=== PATIENT | male | born 1960 | race Caucasian/White ===

== ENCOUNTER 2017-02-27 02:07 | Inpatient (IN) | payer OTHER ==
[~2017-02-27] VITALS: Ht 177.8 cm; Wt 112.0 kg
[~2017-02-27 02:07] MED LIST: EDARBI40 M1 PO
--- NOTE | 2017-02-27 08:10 | Admission Core Measures ---
Acute Coronary Syndrome (CM) ACS Core Measures Acute Coronary Syndrome Diagnosis No Congestive Heart Failure (NEW) CHF Core Measures Congestive Heart Failure Diagnosis No Cerebrovascular Accident (NEW) CVA Core Measures CVA/TIA Diagnosis No Venous Thromboembolism VTE Core [place] (View Protocol) VTE Risk Factors Surgery No Mechanical VTE Prophylaxis d/t N/A MechProphylax Ordered No VTE Pharm Prophylaxis d/t NA PharmProphylax ordered Problem List As ranked by this Provider includes Assessment & Plan 1. Primary osteoarthritis of right hip HOME MEDS Home Med List Azilsartan Medoxomil (Edarbi) 40 MG TABLET 1 TAB PO DAILY BP (Reported)
--- NOTE | 2017-02-27 08:13 | Surg Short-stay <48hrs Dis Sum ---
Visit Information Visit Dates Admission Date: 02/27/17 Discharge Date: 02/28/17 Surgical Short Stay DC Summary Admission Diagnosis: Primary osteoarthritis right hip Final Diagnosis: Same, status post right total hip arthroplasty Procedure(s): Right total hip arthroplasty Summary/Significant Findings: Patient was admitted to the hospital for an elective total joint replacement. Procedure was tolerated well and patient was transferred to a general surgical floor. Diet was advanced and tolerated. Physical therapy performed evaluation and treatment. At time of hospital discharge, vital signs were stable, neurovascular status was intact, and pain was controlled with the use of oral pain medications. Condition at Discharge: Stable Discharge Disposition: home health services Discharge instructions provided to patient/family: Yes Post discharge follow-up plan: Follow up with Dr. Morgan in 6 weeks from date of surgery. Please call his office to schedule/confirm this appointment.
--- NOTE | 2017-02-27 09:27 | Patient Discharge Instructions ---
Discharge Instructions General Discharge Information You were seen/treated for: Right hip primary osteoarthritis You had these procedures: Right total hip arthroplasty Watch for these problems: Increasing pain despite the use of pain medication Increasing redness, warmth or swelling Drainage of any type from incision Inability to bear weight on operative leg Persistent nausea and vomiting Fever greater than 101.5 degrees Other wound care: Please keep wound clean and dry. No ointments or lotions of any type on or near incision. Your dressing will be changed by your nurse on the second day after your surgery. Daily dry dressing changes are recommended each day thereafter. You may shower 48hr after surgery. Do not soak your wound- no tub baths or swimming. Special Instructions: Aspirin: You are taking this medication to help prevent blood clot formation. Please take with food to protect your stomach lining. Take as directed. Protonix (pantoprazole): Take this medication to protect your stomach lining while taking high dose aspirin. Constipation: Pain medication can cause constipation. It is recommended that you take Colace and miralax daily. You may discontinue this medication if you develop loose stool or diarrhea. If you wish to continue this medication, it is available over the counter. If you are unable to move your bowels or pass gas after several days, please contact your doctor. Diet Continue normal diet: Yes Recommended Diet: Regular Activity Activity Limited to: Weight bear as tolerated Additional ACTIVITY Info: Use assistive devices as needed Acute Coronary Syndrome Inclusion Criteria At DC or during hospital stay patient has or had the following: ACS DIAGNOSIS No Discharge Core Measures Meds if any: Prescribed or Continued at Discharge Meds if any: NOT Prescribed or Continued at Discharge Congestive Heart Failure Inclusion Criteria At DC or during hospital stay patient has or had the following: CHF DIAGNOSIS No Discharge Core Measures Meds if any: Prescribed or Continued at Discharge Meds if any: NOT Prescribed or Continued at Discharge Cerebrovascular accident Inclusion Criteria At DC or during hospital stay patient has or had the following: CVA/TIA Diagnosis No Discharge Core Measures Meds if any: Prescribed or Continued at Discharge Meds if any: NOT Prescribed or Continued at Discharge Venous thromboembolism Inclusion Criteria VTE Diagnosis No VTE Type NONE VTE Confirmed by (Test) NONE Discharge Core Measures - Per Current guidelines, there needs to be overlap - treatment for the first 5 days of Warfarin therapy. - If discharged on Warfarin prior to 5 days of - overlap therapy, the patient will need to be - assessed for post discharge needs including - *Post discharge parental anticoagulation - *Warfarin and/or parental anticoagulation education - *Follow up date to check INR post discharge At least 5 days overlap therapy as Inpatient No Meds if any: Prescribed or Continued at Discharge Note: Overlap Therapy is Warfarin and Anticoagulant Meds if any: NOT Prescribed or Continued at Discharge
[2017-02-27] MEDS ORDERED: MIRALAX17 G1 PO (09:43)
[2017-02-27] MEDS ORDERED: ASPIRIN EC325 M2 PO (09:43)
[2017-02-27] MEDS ORDERED: MS CONTIN15 M3 PO (09:43)
[2017-02-27] MEDS ORDERED: DILAUDID2 M1 PO (09:43)
[2017-02-27] MEDS ORDERED: COLACE100 M1 PO (09:43)
[2017-02-27] MEDS ORDERED: PROTONIX20 M1 PO (09:43)
--- NOTE | 2017-02-27 11:58 | Operative Report ---
Operative/Inv Procedure Report Surgery Date: 02/27/17 Name of Procedure: Right total hip replacement Pre-Operative Diagnosis: Primary right hip DJD Post-Operative Diagnosis: Primary right hip DJD Estimated Blood Loss: 300 Surgeon/Mold Worker: Maximiliano Morgan MD Anesthesia: block Operative/Procedure Note Note: Description of Procedure: The patient was taken to the operating room and positively identified. After induction of spinal anesthesia and administration of appropriate pre-operative antibiotics, the patient was positioned supine on the operating room table and all bony prominences were well padded. After performing a surgical timeout, the right lower extremity was prepped and draped in the usual sterile fashion. A direct anterior approach was made to the right hip. The incision was carried sharply through superficial soft tissues to the level of the fascia. Meticulous hemostasis was maintained with Bovie electocautery. The fascia over the tensor fascia alda muscle was opened sharply and the interval between the TFL and the sartorius was entered bluntly taking care to stay lateral to the lateral femoral cutaneous nerve. Retractors were placed around the femoral neck and the pericapsular fat was identified. The ascending branches of the lateral femoral circumflex vessels were identified and carefully coagulated. The pericapsular fat and anterior capsule were then resected. A napkin ring osteotomy was performed and the femoral head was removed without difficulty. Attention was then turned to the acetabulum. After appropriate placement of retractors, the acetabulum was exposed. Soft tissue was cleaned from the acetabular margin and notch. Overhanging osteophytes were removed and the teardrop was exposed. The acetabulum was then sequentially reamed to accept a 58 mm Webster Tritanium hemispherical solid shell. This was impacted into place in the appropriate position and fitted with a 36 mm Trident X3 zero degree polyethylene insert. Attention was then turned to the femur. After performing the appropriate ligament releases, the proximal femur was exposed. It was then sequentially broached to accept a size 6 Cat Anato stem. This was trialed for leg length and stability. The trial component was removed and the final component was impacted into place. The trunnion was carefully cleaned and fit with a 36 mm, + 2.5 Biolox delta ceramic femoral head. The hip was reduced and put through a full range of motion and found to be stable. The articular space was then irrigated with sterile saline. The periarticular soft tissues were infilitrated with Marcaine. The fascial layer was closed with interrupted #1 vicryl suture and the skin was re-approximated with interrupted 2 -0 vicryl. The skin was closed with a running 3-0 V-Lock suture. Steri-strips and a sterile dressing were applied. The patient was awakened and taken to the recovery room in satisfactory condition.
--- NOTE | 2017-02-27 12:27 | RADIOLOGY REPORT ---
EXAMINATION: XR HIP, RIGHT CLINICAL INFORMATION: Status post right hip replacement COMPARISON: None TECHNIQUE: AP and crosstable lateral views of the right hip. FINDINGS: Postoperative changes of right total hip arthroplasty with anatomic alignment of the hip prosthesis. Crosstable lateral view is limited due to patient body habitus. Hardware is intact without evidence of immediate complication. There is a small amount of expected soft tissue swelling and gas. IMPRESSION: Normal postoperative appearance of the right total hip prosthesis.
[2017-02-27 14:00] VITALS: BP 122/78
--- NOTE | 2017-02-27 16:07 | PN- Orthopedic ---
Subjective Subjective: POC S/P RIGHT MARIA L SITTING UP IN CHAIR NOW HAS AMBULATED WITH PT AND STAIRS DENEIS CP, SOB, NO N+V WITH DIET Objective Vital Signs and I&Os Vital Signs Date Time Temp Pulse Resp B/P B/P Pulse O2 O2 Flow FiO2 Mean Ox Delivery Rate 02/27 1400 97.5 68 14 122/78 97 Room Air Intake & Output 02/27 1600 02/27 0800 02/27 0000 02/26 1600 02/26 0802/26 0000 Intake Total Output Total Balance Patient 247 lb 240 lb Weight Weight Standing Scale Measurement Method Physical Exam: CV: RRR LUNGS: CLEAR ABD: SOFT, +BS EXT: THIGH SOFT DISTAL CMS INTACT BILAT DRSG DRY Assessment/Plan Assessment/Plan ORTHO STABLE PLAN MS CONTIN 15MG X1 NOW(08/27 PAIN) ASA FOR DVT PROPYLAXIS TITRATE PAIN MEDS HOME D/C IN AM Core Measures Venous Thromboembolism VTE Risk Factors Surgery No Mechanical VTE Prophylaxis d/t N/A MechProphylax Ordered No VTE Pharm Prophylaxis d/t NA PharmProphylax ordered
[2017-02-27 18:00] VITALS: BP 140/80
[2017-02-27 22:23] VITALS: BP 118/66
[2017-02-28 02:00] VITALS: BP 108/64
[2017-02-28 06:39] VITALS: BP 124/80
--- NOTE | 2017-02-28 07:33 | PN- Orthopedic ---
Subjective Subjective: Patient with complaints of right groin pain, it is manageable, improved with pain medication, mostly has pain when he attempts to flex the hip up, he has minimal pain when standing and walking. He has cleared physical therapy yesterday and like to go home today. Denies any fever or flulike illness, no chest pain or shortness of breath Objective Vital Signs and I&Os Vital Signs Date Time Temp Pulse Resp B/P B/P Pulse O2 O2 Flow FiO2 Mean Ox Delivery Rate 02/28 0639 98.7 68 20 124/80 97 Room Air 02/28 0200 97.6 65 20 108/64 97 Room Air 02/27 2223 98.4 75 18 118/66 94 02/27 1800 99.3 84 20 140/80 98 Room Air 02/27 1400 97.5 68 14 122/78 97 Room Air Intake & Output 02/28 0800 02/28 0000 02/27 1600 02/27 0800 02/27 0000 02/26 1600 Intake Total 1130 960 600 Output Total 800 650 Balance 330 960 -50 Intake, IV 650 600 Intake, Oral 480 360 600 Output, Urine 800 650 Patient 247 lb 240 lb Weight Weight Standing Scale Measurement Method Physical Exam: Well-developed well-nourished no apparent distress. HEENT: Atraumatic, extraocular motion intact Neck: Supple, no lymphadenopathy Respiratory: No respiratory distress Extremities: No edema RIGHT lower extremity hip dressing in place, Dressing clean dry and intact Mild thigh swelling No signs of infection. No shortening or rotation Hip range of motion is limited and without unexpected pain Neurovascularly intact distally Bilateral calves are supple, nontender. Neuro: Alert and oriented x3 Psych: Mood affect normal, normal memory normal judgment. Skin: Warm and dry, no rash on exposed skin Assessment/Plan Assessment/Plan Postop day 1 status post right total hip arthroplasty anterior approach. Perioperative antibiotics. Pain medication as needed. Out of bed Physical therapy, weightbearing as tolerated DC IV fluids Regular diet Aspirin for DVT prophylaxis ALPS for DVT prophylaxis Regular home meds Dressing change postop day 2 DC home with [facility] today. Core Measures Venous Thromboembolism VTE Risk Factors Surgery No Mechanical VTE Prophylaxis d/t N/A MechProphylax Ordered No VTE Pharm Prophylaxis d/t NA PharmProphylax ordered
[2017-02-28 10:22] VITALS: BP 120/60
[2017-02-28 13:54] VITALS: BP 132/74
== END 2017-02-28 14:24 | disposition home health service (06) | DRG 470 ==
LOC: SDA 02:07 → ENRESERV 12:23 → ENTRNSPT 13:04 → EDTRNSPTSTS 13:09 → EDTRNSPT 13:09 → 2NA 13:18 → CMPTRNSPT 13:21 → ENPENDDIS 02-28 07:36 → ENTRNSPT 02-28 14:06 → CMPTRNSPT 02-28 14:18 → 2NA 02-28 14:24
PROC: 0SR90JZ Replacement of Right Hip Joint with Synthetic Substitute, Open Approach (ICD-10-PCS; principal; 2017-02-27)
DX: M16.11 Unilateral primary osteoarthritis, right hip (principal); E66.9 Obesity, unspecified; I10 Essential (primary) hypertension; E78.5 Hyperlipidemia, unspecified; G47.33 Obstructive sleep apnea (adult) (pediatric); K21.9 Gastro-esophageal reflux disease without esophagitis
CPT/HCPCS: 2NASP; 73502-RT; 82436; 97116-GO; 97161-GP; 97530-GO; J0690; J0735; J2550; J3490